=== PATIENT | male | born 1990 | race Native Hawaiian/Other Pacific Islander ===

== ENCOUNTER 2018-03-12 17:28 | Emergency (ER) | payer MEDICAID ==
[2018-03-12] MEDS ORDERED: Tdap Vaccine 0.5 ml Vial (10-64 yrs) IM ONE (18:08)
--- NOTE | 2018-03-12 18:12 | ED PDOC ---
HPI: Psych/Substance Abuse Time Seen by Provider: 03/12/18 18:10 Chief Complaint (Nursing): Psychiatric Evaluation Chief Complaint (Provider): PSYCH EVAL/LACERATION History Per: Patient (27 Y/O MALE HERE WITH MULTIPLE LACERATION NOTED LEFT FOREARM TODAY BY POLICE. PATIENT ADMITS ETOH INTAKE; STATES HE CUT SELF BECAUSE HE WAS UPSET 'BECAUSE OF A GIRL.' DENIES ANY SUICIDAL IDEATION. DENIES ANY H/O DEPRESSION.) Past Medical History Reviewed: Historical Data, Nursing Documentation, Vital Signs Vital Signs: Last Vital Signs Temp 99.1 F 03/12/18 17:33 Pulse 96 H 03/12/18 17:33 Resp 16 03/12/18 17:33 BP 114/74 03/12/18 17:33 Pulse Ox 98 03/12/18 17:33 - Family History Family History: States: No Known Family Hx - Allergies Allergies/Adverse Reactions: Allergies Allergy/AdvReac Type Severity Reaction Status Date / Time No Known Allergies Allergy Verified 03/12/18 17:32 Review of Systems ROS Statement: Except As Marked, All Systems Reviewed And Found Negative Physical Exam - Reviewed Nursing Documentation Reviewed: Yes Vital Signs Reviewed: Yes - Physical Exam Appears: Positive for: Well, Non-toxic, No Acute Distress Head Exam: Positive for: ATRAUMATIC, NORMAL INSPECTION, NORMOCEPHALIC Skin: Positive for: Normal Color ( TWO 7 CM LACERATION SUPERFICIAL NOTED LEFT FOREARM.), Warm Eye Exam: Positive for: EOMI, Normal appearance, PERRL ENT: Positive for: Normal ENT Inspection Neck: Positive for: Normal, Painless ROM Cardiovascular/Chest: Positive for: Regular Rate, Rhythm Respiratory: Positive for: CNT, Normal Breath Sounds Gastrointestinal/Abdominal: Positive for: Normal Exam, Soft Back: Positive for: Normal Inspection Extremity: Positive for: Normal ROM Neurologic/Psych: Positive for: Alert, Oriented - Laboratory Results Result Diagrams: 03/12/18 19:10 03/12/18 19:10 - ECG O2 Sat by Pulse Oximetry: 98 - Progress ED Course And Treament: TDAP 0.5 ML IM X 1 DOSE Disposition - Clinical Impression Clinical Impression: Deliberate self-cutting - Patient ED Disposition Is Patient to be Admitted: Transfer of Care - Disposition Disposition: Transfer of Care Disposition Time: 20:12 Condition: FAIR Patient Signed Over To: Néstor Caldwell Handoff Comments: PENDING BLOODWORK/PSYCH EVAL
[2018-03-12 19:32] LABS: BASO % 0.9 % (0.0-2.0); EOS # 0.1 K/uL (0.0-0.7); EOS % 1.6 % (0.0-4.0); HEMOGLOBIN 9.1 g/dL (12.0-18.0); LYMPH # 1.1 K/uL (1.0-4.3); LYMPH % 32.2 % (20.0-40.0); MEAN CELL VOLUME 70.2 fl (80.0-94.0); MEAN CORPUSCULAR HEMOGLOBIN 21.5 pg (27.0-31.0); MEAN CORPUSCULAR HGB CONC 30.6 g/dL (33.0-37.0); MEAN PLATELET VOLUME 8.4 fl (7.2-11.7); MONO # 0.3 K/uL (0.0-0.8); MONO % 9.6 % (0.0-10.0); NEUT % 55.7 % (50.0-75.0); NRBC % 0.1 % (0.0-0.0); RBC 4.26 Mil/uL (4.40-5.90); RED CELL DISTRIBUTION WIDTH 20.4 % (11.5-14.5); WHITE BLOOD COUNT 3.5 K/uL (4.8-10.8)
[2018-03-12 19:35] LABS: ALB/GLOB RATIO 1.4 (1.0-2.1); ALBUMIN 4.7 g/dL (3.5-5.0); ALT/SGPT 174 U/L (21-72); AST/SGOT 356 U/L (17-59); BLOOD UREA NITROGEN 3 mg/dl (9-20); CALCIUM 8.9 mg/dL (8.4-10.2); GFR NON-AFRICAN AMERICAN > 60
[2018-03-12 22:14] LABS: SQUAMOUS EPITHIAL < 1 /hpf (0-5); URINE BACTERIA RARE (<OCC); URINE BILIRUBIN NEGATIVE (NEGATIVE); URINE BLOOD SMALL (NEGATIVE); URINE CLARITY SLIGHTY-CLOUDY (Clear); URINE COLOR YELLOW (YELLOW); URINE GLUCOSE (UA) NEG (Normal); URINE LEUKOCYTE ESTERASE NEG Leu/uL (Negative); URINE PROTEIN >=500 mg/dL (NEGATIVE); URINE UROBILINOGEN 0.2-1.0 mg/dL (0.2-1.0)
[2018-03-12 22:25] LABS: BARBITURATES, UR NEGATIVE (NEGATIVE); BENZODIAZEPINES, UR NEGATIVE (NEGATIVE); OPIATES, UR NEGATIVE (NEGATIVE); PHENCYCLIDINE, UR NEGATIVE (NEGATIVE)
--- NOTE | 2018-03-13 01:28 | ED PDOC ---
- Laboratory Results Result Diagrams: 03/12/18 19:10 03/12/18 19:10 - ECG O2 Sat by Pulse Oximetry: 97 - Progress ED Course And Treament: 1999 Signed out to me pending sobriety and crisis evaluation 2030 Sleeping comfortably and in no distress. 2240 Still sleeping no distress. 0127 Pt. evaluated by Tash, store worker, who spoke with Dr. Mota and cleared pt. for discharge. Gait steady, unassisted. Denies SI/HI, hallucinations. Disposition - Clinical Impression Clinical Impression: Deliberate self-cutting, Alcohol-induced mood disorder - POA Present On Arrival: None - Disposition Referrals: [facility] [place] [facility] [Outside] Disposition: Routine/Home Disposition Time: 01:25 Condition: IMPROVED Additional Instructions: SEEMA CASANOVA, thank you for letting us take care of you today. Your provider was Carlos Eduardo Prescott MD and you were treated for PSYCH EVAL. The emergency medical care you received today was directed at your acute symptoms. If you were prescribed any medication, please fill it and take as directed. It may take several days for your symptoms to resolve. Return to the Emergency Department if your symptoms worsen, do not improve, or if you have any other problems. Please contact your doctor or call one of the physicians/clinics you have been referred to that are listed on the Patient Visit Information form that is included in your discharge packet. Bring any paperwork you were given at discharge with you along with any medications you are taking to your follow up visit. Our treatment cannot replace ongoing medical care by a primary care provider outside of the emergency department. Thank you for allowing the [facility] team to be part of your care today. If you had an X-Ray or CT scan: A Radiologist will review the ED reading if any change in treatment is needed we will contact you. If you had a blood, urine, or wound culture: It will take several days for the results, if any change in treatment is needed we will contact you. If you had an STI test: It will take 48 hours for the results. Please call after 1 week if you have not heard back. Instructions: Alcohol Use - When Is Drinking a Problem?, Self-Harm (DC) Print Language: [id number]
[2018-03-13 01:32] VITALS: TEMP 98.2; O2SAT 100
[2018-03-13 01:41] VITALS: BP 138/89; PULSE 89; RESP 18
[2018-03-13] MEDS ORDERED: Tdap Vaccine 0.5 ml Vial (10-64 yrs) IM ONE (01:45)
== END 2018-03-13 01:47 | disposition home or self-care (01) ==
LOC: H.ER 17:28
DX: F10.94 Alcohol use, unspecified with alcohol-induced mood disorder (principal); X78.9XXA Intentional self-harm by unspecified sharp object, initial encounter